=== PATIENT | female | born 1955 | race Caucasian/White ===

== ENCOUNTER 2023-10-15 08:05 | Emergency (ER) | payer BC ==
[2023-10-15] MEDS: Ketorolac 30 MG/ML SDV IM ONE (09:20)
== END 2023-10-15 09:32 | disposition home or self-care (01) ==
LOC: JP.ED 08:05
DX: M62.830 Muscle spasm of back (principal); I10 Essential (primary) hypertension; E03.9 Hypothyroidism, unspecified; Z91.040 Latex allergy status; Z88.2 Allergy status to sulfonamides; Z79.890 Hormone replacement therapy
CPT/HCPCS: 96372; 99283; J1885